=== PATIENT | male | born 1990 | race Two or more races ===

== ENCOUNTER 2019-05-08 05:13 | Emergency (ER) | payer OTHER ==
[~2019-05-08] VITALS: Ht 175.3 cm; Wt 77.1 kg
[2019-05-08 05:15] VITALS: BP 131/79
--- NOTE | 2019-05-08 05:24 | NUR ---
PT DISCHARGED UNDER THE CARE OF [employer] [facility]. PT IS MEDICALLY CLEARED FOR INCARCERATION. PT IS AMBULATORY ON STEADY GAIT.
== END 2019-05-08 05:26 ==
LOC: ER 05:14
DX: Z02.89 Encounter for other administrative examinations (principal); F17.200 Nicotine dependence, unspecified, uncomplicated